=== PATIENT | male | born 1985 | race Caucasian/White ===

== ENCOUNTER 2018-01-30 21:35 | Emergency (ER) | payer BC, OTHER ==
[2018-01-30 22:57] VITALS: BP 112/68
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
--- NOTE | 2018-01-31 07:40 | RAD ---
HISTORY: Left hand injury COMPARISONS: None VIEWS: 4, Frontal, lateral, and oblique views of the left hand FINDINGS: BONE DENSITY: Normal. BONES: There is no displaced fracture. JOINTS: There is no arthropathy. ALIGNMENT: There is no dislocation. SOFT TISSUES: Unremarkable. OTHER FINDINGS: None. IMPRESSION: NO ACUTE OSSEOUS INJURY. IF SYMPTOMS PERSIST, RECOMMEND REPEAT IMAGING.
== END 2018-01-30 22:55 | disposition home or self-care (01) ==
LOC: ED 21:35
DX: S63.92XA Sprain of unspecified part of left wrist and hand, initial encounter (principal); S60.222A Contusion of left hand, initial encounter; W22.01XA Walked into wall, initial encounter; Y92.9 Unspecified place or not applicable
CPT/HCPCS: 99282